=== PATIENT | female | born 1975 | race Caucasian/White ===

== ENCOUNTER 2016-10-10 17:37 | Emergency (ER) | payer BC ==
--- NOTE | 2016-10-10 17:59 | RAD ---
HISTORY: Neurological changes COMPARISONS: MRI dated August 07, 2016 TECHNIQUE: Multiple contiguous axial CT scans were obtained of the head without intravenous contrast. FINDINGS: HEMORRHAGE/INFARCT: There is no hemorrhage or acute infarct. MASSES/SHIFT: There is focal calcification of the left thalamic notch corresponding to the previously described mass of the left frontal lobe. There is no shift. EXTRA-AXIAL SPACES: There are no extra-axial fluid collections. SULCI AND VENTRICLES: The sulci and ventricles are normal in size and position for the patient's stated age. CEREBRUM: There is post surgical change to the left corpus callosum. As noted above, there is dystrophic calcification of the caudothalamic notch on the left corresponding to the previously described mass of the left basal ganglia. BRAINSTEM: There are no focal parenchymal abnormalities. CEREBELLUM: There are no focal parenchymal abnormalities. VESSELS: The vessels are grossly normal. PARANASAL SINUSES: The paranasal sinuses are clear. ORBITS: The orbits are unremarkable. BONES AND SOFT TISSUE: There is post surgical change to the skull OTHER: None IMPRESSION: 1. AGAIN NOTED IS A PARTIALLY CALCIFIED MASS OF THE LEFT CAUDOTHALAMIC NOTCH CORRESPONDING TO THE PREVIOUS DESCRIBED LESION ON MRI. THERE IS NO SHIFT. THIS IS STABLE ACCOUNTING FOR DIFFERENCES IN TECHNIQUE.. 2. NO ACUTE INTRACRANIAL PATHOLOGY PRELIMINARY FINDINGS WERE DISCUSSED WITH DR. AVILES IN THE EMERGENCY DEPARTMENT AT APPROXIMATELY 5:54 PM ON NOVEMBER 09, 2016.
[2016-10-10 18:00] LABS: Hematocrit 34 % (35-47); Hemoglobin 10.5 g/dl (12.0-16.0); Mean Corpuscular HGB Conc 31 g/dl (31-36); Mean Corpuscular Hemoglobin 21 pg (27-31); Mean Corpuscular Volume 69 fL (80-97); Mean Platelet Volume 8 um3 (7.4-10.4); Red Blood Count 4.89 10^6/ul (4.0-5.4); Red Cell Distribution Width 18 % (10.5-15); White Blood Count 11.2 10^3/ul (3.5-10.8)
[2016-10-10 18:01] LABS: Comments Flag Yes
[2016-10-10 18:02] LABS: Add Diff/Slide Review? Slide Review Added
[2016-10-10 18:15] LABS: Albumin 4.4 g/dL (3.2-5.2); BUN/Creatinine Ratio 16.7 (8-20); Calcium 9.1 mg/dL (8.6-10.3); EGFR African American 104.7 (>60); EGFR Non-African American 81.4 (>60); Globulin 2.6 g/dL (2-4); HDL Cholesterol 68.6 mg/dL; Potassium 3.1 mmol/L (3.5-5.0); Total Bilirubin 0.6 mg/dL (0.2-1.0)
[2016-10-10] MEDS ORDERED: Aspirin TAB* 325 MG PO ONE (18:16)
[2016-10-10] MEDS ORDERED: NS 0.9% 1000 ML* 1,000 ML IV ONE (18:16)
[2016-10-10 18:26] LABS: Troponin I 0.04 ng/mL (<0.04)
[2016-10-10] MEDS ORDERED: Aspirin SUPP* 300 MG ONE (18:26)
[2016-10-10] MEDS ORDERED: Iohexol 350* (CONTRAST) 500 ML MDV IV ONE (18:37)
[2016-10-10 18:38] LABS: Burr Cells 3+
[2016-10-10 18:39] LABS: Hypochromasia 1+
[2016-10-10] MEDS ORDERED: Ondansetron INJ* 2 MG/ML VIAL IV ONE (18:39)
[2016-10-10 18:40] LABS: Microcytosis 1+
[2016-10-10] MEDS ORDERED: Ondansetron INJ* 2 MG/ML VIAL ONE (18:40)
[2016-10-10 18:41] LABS: Add Path Review? YES
--- NOTE | 2016-10-10 19:15 | RAD ---
HISTORY: Right-sided weakness COMPARISONS: None VIEWS:1: Single frontal portable view of the chest at 6:52 PM FINDINGS: LINES AND TUBES: None. CARDIOMEDIASTINAL SILHOUETTE: The cardiomediastinal silhouette is normal for portable technique. PLEURA: The costophrenic angles are sharp. No pleural abnormalities are noted. LUNG PARENCHYMA: The lungs are clear. ABDOMEN: The upper abdomen is clear. There is no subphrenic gas. BONES AND SOFT TISSUES: No bone or soft tissue abnormalities are noted. IMPRESSION: NO ACTIVE CARDIOPULMONARY DISEASE.
--- NOTE | 2016-10-10 19:34 | RAD ---
HISTORY: Right hemiparesis COMPARISONS: Head CT dated June 12, 2016, MRI dated August 07, 2016 TECHNIQUE: Multiple contiguous axial CT scans were obtained of the head and neck After the administration of nonionic intravenous contrast timed to the systemic arterial phase of contrast enhancement. Coronal and sagittal multiplanar reformations are submitted for review. Multiple 3-D maximum intensity projection reconstructions are also submitted for review. FINDINGS: CTA NECK: AORTIC ARCH: There is a normal three-vessel branching pattern of the aortic arch. There is no ostial or proximal stenosis of the cephalic great vessels. RIGHT VERTEBRAL ARTERY: The right vertebral artery is tortuous, without occlusion. LEFT VERTEBRAL ARTERY: The left vertebral artery is tortuous, without occlusion DOMINANCE: The vertebral arteries are codominant. RIGHT COMMON CAROTID ARTERY: The right common carotid artery is patent. The right carotid bifurcation occurs at C3-C4 RIGHT INTERNAL CAROTID ARTERY: There is no right internal carotid artery stenosis by NASCET criteria. RIGHT EXTERNAL CAROTID ARTERY: The right external carotid artery is unremarkable. LEFT COMMON CAROTID ARTERY: The left common carotid artery is patent. The left carotid bifurcation occurs at C3-C4 LEFT INTERNAL CAROTID ARTERY: There is no left internal carotid artery stenosis by NASCET criteria. LEFT EXTERNAL CAROTID ARTERY: The left external carotid artery is unremarkable. VENOUS CIRCULATION: The venous system is unremarkable. SALIVARY GLANDS: The parotid glands, submandibular glands, sublingual glands are normal. NASAL CAVITY/NASOPHARYNX: The nasal cavity and nasopharynx are normal. ORAL CAVITY/OROPHARYNX: The oral cavity is obscured by streak artifact from dental amalgam. The visualized oral cavity and oropharynx are unremarkable. LARYNGEAL APPARATUS/HYPOPHARYNX: The laryngeal apparatus and hypopharynx are normal. UPPER AIRWAY/UPPER ESOPHAGUS: The visualized upper airway and esophagus are normal. LUNG APICES: The lung apices are clear. THYROID GLAND: The thyroid gland is normal. LYMPH NODES: There is no lymphadenopathy by size criteria. BONES AND SOFT TISSUES: No bone or soft tissue abnormalities are noted. CTA HEAD: INTRACRANIAL CIRCULATION: There is an eccentric filling defect of the proximal third of the basilar artery to the left. This is near occlusive. Elsewhere, there is no aneurysm, vascular malformation, occlusion, or stenosis of the intracranial circulation. The anterior communicating artery complex is clear. Bilateral posterior communicating arteries are identified. VENOUS CIRCULATION: The venous system is unremarkable. PERFUSION: There is no obvious parenchymal perfusion deficit. HEMORRHAGE/INFARCT: There is no hemorrhage or acute infarct. MASSES/SHIFT: As noted on previous examinations, there is a partially calcified lesion of the left basal ganglia. This is stable. There is no shift EXTRA-AXIAL SPACES: There are no extra-axial fluid collections. SULCI AND VENTRICLES: The sulci and ventricles are normal in size and position for the patient's stated age. CEREBRUM: As noted on previous examinations, there is a partially calcified lesion of the left basal ganglia, stable. BRAINSTEM: There are no focal parenchymal abnormalities. CEREBELLUM: There are no focal parenchymal abnormalities. PARANASAL SINUSES: The paranasal sinuses are clear. ORBITS: The orbits are unremarkable. BONES AND SOFT TISSUE: There is post surgical change to the skull OTHER: There is no abnormal enhancement. IMPRESSION: 1. THERE IS A NEAR OCCLUSIVE FILLING DEFECT OF THE PROXIMAL THIRD OF THE BASILAR ARTERY. THE DIFFERENTIAL INCLUDES THROMBOEMBOLIC DISEASE VERSUS BASILAR ARTERY DISSECTION WITH THROMBOSIS. ATHEROMATOUS DISEASE IS CONSIDERED LESS LIKELY GIVEN THE ABSENCE OF ATHEROSCLEROSIS ELSEWHERE. 2. NO INTERNAL CAROTID ARTERY STENOSIS BY NASCET CRITERIA. 3. STABLE LEFT BASAL GANGLIA LESION. PRELIMINARY FINDINGS WERE DISCUSSED WITH DR. ARMAS AT APPROXIMATELY 7:28 PM ON OCTOBER 10, 2016. CPT II Codes: 3100F
--- NOTE | 2016-10-10 20:08 | ED ---
rima Solis Timothy, scribed for Prasanna Foss MD on 10/10/16 at 1817 . Neurological HPI - HPI Summary HPI Summary: Odette Ponce is a 41 yo female presenting to [facility] as a code duarte. EMS was called s /p syncopal episode at 1715. She presents with severe weakness of the right side with slurred speech. She states she had dizziness [employer] today. Her MHx includes minor tremor in both upper extremities which she has been evaluaetd for , and brain tumor partially removed in 1999. - History of Current Complaint Stated Complaint: POSSIBLE CODE HEARD Time Seen by Provider: 10/10/16 17:41 Hx Obtained From: Patient Onset/Duration: Sudden Onset, Started hours ago Timing: Constant Onset Severity: Moderate Current Severity: Moderate Pain Intensity: 0 Pain Scale Used: 0-10 Numeric Character: Weak - right side, Impaired Speech, Other: - syncope Associated Signs and Symptoms: Positive: Weakness - right side, Loss of Consciousness, Impaired Speech - Allergy/Home Medications Allergies/Adverse Reactions: Allergies Allergy/AdvReac Type Severity Reaction Status Date / Time No Known Allergies Allergy Verified 08/02/16 13:58 Home Medications: Home Medications Montelukast Sodium TAB* [Singulair TAB*] 10 mg PO DAILY 10/10/16 [History Confirmed 10/10/16] PMH/Surg Hx/FS Hx/Imm Hx Endocrine/Hematology History: Denies: Hx Diabetes Cardiovascular History: Denies: Hx Hypertension, Hx Pacemaker/ICD Respiratory History: Denies: Hx Asthma History: Denies: Hx Dialysis Sensory History: Denies: Hx Hearing Aid Comment Only: Hx Contacts or Glasses - HAD LASSER SURGERY Opthamlomology History: Comment Only: Hx Contacts or Glasses - HAD LASSER SURGERY Neurological History: Reports: Other Neuro Impairments/Disorders - MINOR TREMOR BOTH HANDS, EVALUATED, OK Psychiatric History: Denies: Hx Panic Disorder - Surgical History Surgery Procedure, Year, and Place: BRAIN TUMOR PARTIALLY REMOVED 08/2013 VEIN STRIPPING Hx Anesthesia Reactions: No Infectious Disease History: No Infectious Disease History: Denies: Traveled Outside the [place] in Last 30 Days - Family History Known Family History: Positive: Unknown - Pt was unable to recall - Social History Alcohol Use: Weekly Alcohol Amount: 1-2 DRINKS/WEEK Substance Use Type: Reports: None Smoking Status (MU): Never Smoked Tobacco Have You Smoked in the Last Year: No Review of Systems Constitutional: Negative Eyes: Negative ENT: Negative Cardiovascular: Negative Respiratory: Negative Gastrointestinal: Negative Genitourinary: Negative Musculoskeletal: Negative Skin: Negative Positive: Weakness - right side, Syncope, Slurred Speech Psychological: Normal All Other Systems Reviewed And Are Negative: Yes Physical Exam Triage Information Reviewed: Yes Vital Signs On Initial Exam: Initial Vitals Pulse Ox 98 10/10/16 18:01 Vital Signs Reviewed: Yes Appearance: Positive: No Pain Distress, Well-Nourished, Ill-Appearing Skin: Positive: Warm, Skin Color Reflects Adequate Perfusion, Dry Head/Face: Positive: Normal Head/Face Inspection Eyes: Positive: Normal ENT: Positive: Normal ENT inspection Neck: Positive: Supple, Nontender Respiratory/Lung Sounds: Positive: Clear to Auscultation, Breath Sounds Present Cardiovascular: Positive: RRR Abdomen Description: Positive: Nontender, Soft Bowel Sounds: Positive: Present Musculoskeletal: Positive: Other - weakness right side Neurological: Negative: Normal - see NIH scale Psychiatric: Positive: Normal, Affect/Mood Appropriate - Chris Coma Scale Coma Scale Total: 15 Diagnostics - Vital Signs Vital Signs Temp Pulse Resp BP Pulse Ox 10/10/16 18:03 98.6 F 74 14 115/55 100 10/10/16 18:02 98.6 F 61 14 115/55 100 10/10/16 18:01 98 - Laboratory Lab Results: Lab Results 10/10/16 10/10/16 10/10/16 Range/Units 17:50 17:50 17:50 WBC 11.2 H (3.5-10.8) 10^3/ul RBC 4.89 (4.0-5.4) 10^6/ul Hgb 10.5 L (12.0-16.0) g/dl Hct 34 L (35-47) % MCV 69 L (80-97) fL MCH 21 L (27-31) pg MCHC 31 (31-36) g/dl RDW 18 H (10.5-15) % Plt Count 582 H (150-450) 10^3/ul MPV 8 (7.4-10.4) um3 Neut % (Auto) 68.4 (38-83) % Lymph % (Auto) 24.4 L (25-47) % Kane % (Auto) 6.4 (1-9) % Eos % (Auto) 0.4 (0-6) % Baso % (Auto) 0.4 (0-2) % Absolute Neuts (auto) 7.7 (1.5-7.7) 10^3/ul Absolute Lymphs (auto) 2.7 (1.0-4.8) 10^3/ul Absolute Monos (auto) 0.7 (0-0.8) 10^3/ul Absolute Eos (auto) 0 (0-0.6) 10^3/ul Absolute Basos (auto) 0 (0-0.2) 10^3/ul Absolute Nucleated RBC 0 10^3/ul Nucleated RBC % 0 INR (Anticoag Therapy) 1.05 (0.89-1.11) APTT 29.0 (26.0-36.3) seconds POC Glucose (mg/dL) (74-106) mg/dL Blood Type B Positive Antibody Screen Pending 10/10/16 Range/Units 17:51 WBC (3.5-10.8) 10^3/ul RBC (4.0-5.4) 10^6/ul Hgb (12.0-16.0) g/dl Hct (35-47) % MCV (80-97) fL MCH (27-31) pg MCHC (31-36) g/dl RDW (10.5-15) % Plt Count (150-450) 10^3/ul MPV (7.4-10.4) um3 Neut % (Auto) (38-83) % Lymph % (Auto) (25-47) % Kane % (Auto) (1-9) % Eos % (Auto) (0-6) % Baso % (Auto) (0-2) % Absolute Neuts (auto) (1.5-7.7) 10^3/ul Absolute Lymphs (auto) (1.0-4.8) 10^3/ul Absolute Monos (auto) (0-0.8) 10^3/ul Absolute Eos (auto) (0-0.6) 10^3/ul Absolute Basos (auto) (0-0.2) 10^3/ul Absolute Nucleated RBC 10^3/ul Nucleated RBC % INR (Anticoag Therapy) (0.89-1.11) APTT (26.0-36.3) seconds POC Glucose (mg/dL) 129 H (74-106) mg/dL Blood Type Antibody Screen Result Diagrams: 10/10/16 17:50 10/10/16 17:50 Lab Statement: Any lab studies that have been ordered have been reviewed, and results considered in the medical decision making process. - Radiology CXR Xray Interpretation: No Acute Changes - IMPRESSION: NO ACTIVE CARDIOPULMONARY DISEASE. Radiology Interpretation Completed By: Radiologist - CT Brain CT Interpretation: No Acute Changes - IMPRESSION: 1. AGAIN NOTED IS A PARTIALLY CALCIFIED MASS OF THE LEFT CAUDOTHALAMIC NOTCH CORRESPONDING TO THE PREVIOUS DESCRIBED LESION ON MRI. THERE IS NO SHIFT. THIS IS STABLE ACCOUNTING FOR DIFFERENCES IN TECHNIQUE.. 2. NO ACUTE INTRACRANIAL PATHOLOGY CT Interpretation Completed By: Radiologist head/neck CT Interpretation: Positive (See Comments) - IMPRESSION: 1. THERE IS A NEAR OCCLUSIVE FILLING DEFECT OF THE PROXIMAL THIRD OF THE BASILAR ARTERY. THE DIFFERENTIAL INCLUDES THROMBOEMBOLIC DISEASE VERSUS BASILAR ARTERY DISSECTION WITH THROMBOSIS. ATHEROMATOUS DISEASE IS CONSIDERED LESS LIKELY GIVEN THE ABSENCE OF ATHEROSCLEROSIS ELSEWHERE. 2. NO INTERNAL CAROTID ARTERY STENOSIS BY NASCET CRITERIA. 3. STABLE LEFT BASAL GANGLIA LESION. CT Interpretation Completed By: Radiologist - EKG 4715 Cardiac Rate: Bradycardia - 58 BPM EKG Interpretation: Sinus bradycardia @ 58 BPM, nonspecific changes NIH Scale - NIH Scale Level of Consciousness: Alert/Keenly Responsive Ask Patient the Month and His/Her Age: Both Correct Ask Pt to Open/Close Eyes and Assistant Women'S Tennis Coach/Release Non-Paretic Hand: Both Correctly Best Gaze (Only Horizontal Eye Movement): Normal Visual Field Testing: No Visual Loss Facial Paresis-Pt to Smile & Close Eyes or Grimace Symmetry: Complete Paralysis Motor Function - Right Arm: No Effort Against [place] Motor Function - Left Arm: No Drift-Holds 10 Seconds Motor Function - Right Leg: No Effort Against [place] Motor Function - Left Leg: No Drift-Holds 10 Seconds Limb Ataxia-Must be out of Proportion to Weakness Present: Absent Sensory (Use Pinprick to Test Arms/Legs/Trunk/Face): Pinprick Less on Affected Best Language (Describe Picture, Name Items): Severe Aphasia Dysarthria (Read Several Words): Slurs Some Words Extinction and Inattention: No Abnormality Total Score: 13 Course/Dx - Course Course Of Treatment: Ms. Ponce presented by EMS with the acute onset of right- sided weakness while in the ambulance. They had been called for dizziness all day. On arrival, she was aphasic and it was difficult to get a good story. A code felicia had been called while en route based upon the story and she went immediately to CT and Dr. Jang was immediately called and responded in a timely fashion and came to the ED to evaluate her. She was found to have basilar artery narrowing on CTA and the [place] [facility] [place]: Odette Ponce is a 41 yo female presenting to [facility] with possible valerie duarte. Her brain CT suggests no acute changes. Her EKG suggests sinus bradycardia and nonspecific changes. In the ED course she received ASA and zofran. Her XCR suggests no active cardiopulmonary disease. Her Head CTA suggests. IMPRESSION: 1. THERE IS A NEAR OCCLUSIVE FILLING DEFECT OF THE PROXIMAL THIRD OF THE BASILAR ARTERY. THE DIFFERENTIAL INCLUDES THROMBOEMBOLIC DISEASE VERSUS BASILAR ARTERY DISSECTION WITH. THROMBOSIS. ATHEROMATOUS DISEASE IS CONSIDERED LESS LIKELY GIVEN THE ABSENCE OF. ATHEROSCLEROSIS ELSEWHERE. 2. NO INTERNAL CAROTID ARTERY STENOSIS BY NASCET CRITERIA. 3. STABLE LEFT BASAL GANGLIA LESION. After clinical examination and review of her lab and imaging studies as well as discussion with Dr. Odom and Dr. Jang, she will be transferred to [facility], a facility for higher level of care for her hemiparesis. 1800 - Dr. Odom (hospitalist) - discussed Pt condition. 1816 - Dr. Jang (neurology) Discussed Pt condition, believes Pt Sx may be due to seizure or atypical migraine. 1830 - Dr. Jang (neurology) - recommends CTA. 1823 - Dr. Jang (neurology) - if CTA is negative, recommends steroid administration. 1949 - Dr. Jang (neurology) - recommends transfer of Pt to facility for higher level of care. 1949 - Dr. Peralta ([facility]) - accepts Pt for transfer - Diagnoses Provider Diagnoses: CVA (cerebral vascular accident) - Physician Notifications Discussed Care Of Patient With: Paul Jang - Informed of Pt condition Time Discussed With Above Provider: 17:45 Instructed by Provider To: Transfer - Critical Care Time Critical Care Time: 30-74 min Discharge - Discharge Plan Condition: Stable Disposition: TRANS [facility] CARE FAC Discharge Disposition Comment: transferred to [facility] for hemiparesis treatment Referrals: Grace Fallon MD [Primary Care Provider] - The documentation as recorded by the rima arevalo Timothy accurately reflects the service I personally performed and the decisions made by me, Prasanna Foss MD.
[2016-10-10 20:39] VITALS: BP 116/57
--- NOTE | 2016-10-10 21:07 | CONS ---
ADDENDUM NOW INCLUDED ON THIS REPORT CONSULTATION REPORT: DATE OF CONSULT/DICTATION: 10/10/16 - EMERGENCY DEPT PATIENT OF: Dr. Foss. HISTORY OF PRESENT ILLNESS: This is a 41-year-old right-handed woman whom I am asked to evaluate for focal neurological symptoms. 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 This occurs a few times a week to a few times a month and there are no clear triggers for that. This morning, while she was walking at about 10 o'clock, she developed a relatively severe case of feeling vertiginous followed by the kaleidoscope vision. There was no headache and she does not get headache with this and she lied down and it passed within the hour. Tonight, she was walking at about 5 and she got similar vertiginous feeling, but more intense than earlier today and more and more intense episode she has had. She has had a similar visual disturbance and says this is more intense. She came to ER, and en route, she developed an aphasia and numbness and tingling in the right arm with some possible weakness. She thought her arms felt heavy, but was not sure whether she maintained full power. She had difficulty getting out even single word when she first came to the ER, but her symptoms have significantly cleared. In addition to these symptoms, she has had some nausea, but no headache and had some dry heaves. PAST MEDICAL AND SURGICAL HISTORY: Her past history is significant for a benign brain tumor that has been apparently partially resected and on CT scan showed a calcified mass and she has had prior CT scans. She has been in good general health other than some seasonal allergies for which she has recently been placed on Singulair 10 mg daily. She has IUD. She has had superficial vein stripping due to clot, apparently no DVT. That was apparently her only surgery. FAMILY HISTORY: There is no family history for stroke. SOCIAL HISTORY: She does not smoke, drink, or use drugs. REVIEW OF SYSTEMS: Negative in all 14 spheres other than the HPI. PHYSICAL EXAM: Temperature 98.6, pulse 63, respirations 18, blood pressure 115/ 55. She is alert and oriented x3 with intact speech and naming. Sentences were complete and had no word-finding difficulties. She has intact cranial nerves and funduscopic exam. There was no facial weakness at this point. She had no pronator drift. Fine motor was intact. Sensation was intact to light touch. Strength was 5/5. [id number] and vixf-[id number] were intact. Reflexes were 1 + and equal. Toes were downgoing. Chest: Clear. Cardiovascular: Regular rate and rhythm. Abdomen is soft with positive bowel sounds. DIAGNOSTIC STUDIES/LAB DATA: Her CT scan was reviewed and compared to her prior MRI scan from 08/07/16, which shows her stable enhancing left basal ganglia mass, status post surgical changes. There was no bleeding. No evidence of stroke. Labs include normal white count of 11.2, hematocrit 34, platelet count of 582. Normal INR and PTT. LDL of 64. CMP was normal other than potassium of 3.1, glucose 143, lactate was 3.0, troponin was 0.04. Normal liver function tests. Normal BUN and creatinine. IMPRESSION: I discussed with Odette and her in detail that her symptoms today are most probably a constellation of symptoms beginning at 10 a.m. with vertigo and visual symptoms that were similar to what she had later; however, compared to her prior clinically diagnosed ocular migraines the event today, also included significant aphasia and at least right-sided sensory symptoms if not some weakness, this has markedly improved at this point with just some slight slurring of her speech and her visual symptoms have gone, but she has at times slight double vision. The most likely thing is that this is a hemiplegic migraine or migraine with aphasia given the associated symptoms that are more typical for her, more frequent migraine without headache. However, without any specific trigger for a worst headache, it is of concern and we are getting a CTA to make sure that there is no retrievable clot, especially given her small mass in her brain and the fact that her symptoms began earlier today and they are significantly better, she would not be a good tPA candidate. In addition, the most likely cause of her focal deficits will be migrainous rather than clot. We are checking this assumption with a CTA now. Thank you for sharing her case. ADDENDUM: Her CTA scan was obtained and showed a near occlusive filling defect in the proximal third of her basilar artery consistent with either thromboembolic disease versus basilar artery dissection with thrombosis, possibly atherosclerotic disease with clot will be on the differential as well. It did not appear to be migraine. I spoke to [facility] and discussed the case in detail with Dr. Lara describing her clinical presentation, her scans and her MRI, CT and CTA. He was able to review all scans including the CTA but he contacted me back shortly after and fully loaded. He agreed that given the various factors including her symptoms earlier, the tumor and the overall clinical course, TPA was not indicated. However, he and I were concerned that the clot could propagate and she should be in a tertiary center for intervention as needed. The plan was to anticoagulate with heparin but not to do it in transfer but wait for her to arrive in the ER there. I discussed this all with the family and the patient and she asked appropriate questions and had no weakness or numbness at that point and no double vision. Her speech was improved from how I saw initially but still has slight slur at that point. Shortly afterwards, we got a call from the helicopter that weather precluded her going by helicopter. We immediately called [place] and in the interim I was able to reach [place]. We called for an ambulance to go to [place] but to change it to [place] if they could accept in a timely manner. I spoke to Dr. Lara again who thought it was reasonable to go to [facility] rather than [place] given the time difference by [facility] to [place] versus [facility]. Dr. Woodruff called back shortly after that and I presented the case to her in detail. The patient was still within the timeframe for TPA but she also did not think TPA was indicated given the tumor, the degree of her symptoms and the ambulance will be arriving shortly to go to [facility] Emergency Room for further evaluation and treatment at tertiary center. Thank you for sharing her case. Addendum Dictated: 10/10/162024 Transcribed: 10/10/162103 [id number] #: [id number] #: [id number] GAYE
--- NOTE | 2016-10-10 21:49 | CONS ---
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 It did not appear to be migraine. I spoke to [facility] and discussed the case in detail with Dr. Lara describing her clinical presentation , her scans and her MRI, CT and CTA. He was able to review all scans including the CTA but he contacted me back shortly after and fully loaded. He agreed that given the various factors including her symptoms earlier, the tumor and the overall clinical course, TPA was not indicated. However, he and I were concerned that the clot could propagate and she should be in a tertiary center for intervention as needed. The plan was to anticoagulate with heparin but not to do it in transfer but wait for her to arrive in the ER there. I discussed this all with the family and the patient and she asked appropriate questions and had no weakness or numbness at that point and no double vision. Her speech was improved from how I saw initially but still has slight slur at that point. Shortly afterwards, we got a call from the helicopter that weather precluded her going by helicopter. We immediately called [place] and in the interim I was able to reach [place]. We called for an ambulance to go to [place] but to change it to [place] if they could accept in a timely manner. I spoke to Dr. Lara again who thought it was reasonable to go to [facility] rather than [place] given the time difference by [facility] to [place] versus [facility]. Dr. Woodruff called back shortly after that and I presented the case to her in detail. The patient was still within the timeframe for TPA but she also did not think TPA was indicated given the tumor, the degree of her symptoms and the ambulance will be arriving shortly to go to [facility] Emergency Room for further evaluation and treatment at tertiary center. Thank you for sharing her case. [id number]/[facility] #: [id number] GAYE
== END 2016-10-10 20:35 | disposition short-term general hospital (02) ==
LOC: ED 17:37
DX: I63.9 Cerebral infarction, unspecified (principal); R53.1 Weakness; R55 Syncope and collapse; R47.81 Slurred speech
CPT/HCPCS: 36415; 70450; 70496; 70498; 71010; 80053; 80061; 83605; 84484; 85025; 85060; 85610; 85730; 86850; 86900; 86901; 93005; 99285; A9270-GY; J2405; Q9967